=== PATIENT | female | born 2005 | race Caucasian/White ===

== ENCOUNTER 2023-10-02 20:07 | Emergency (ER) | payer OTHER, MEDICAID, SELFPAY ==
[2023-10-02 20:25] VITALS: BP 134/79; PULSE 82; RESP 18; TEMP 37.1; O2SAT 100; BMI 26.5
[2023-10-02] MEDS: IBUPROFEN 400 MG TABLET PO (20:44)
[2023-10-02 20:50] LABS: Add Manual Diff / Slide Review NO; Basophils Absolute Auto 100 /uL (0-100); Basophils Percent Auto 0.7 % (0-2); Eosinophils Absolute Auto 100 /uL (0-450); Eosinophils Percent Auto 0.8 % (2-4); Hematocrit 44.1 % (36-46); Hemoglobin 14.9 g/dL (12.0-16.0); Lymphocytes Absolute Auto 3100 /uL (1100-4500); Lymphocytes Percent Auto 37.4 % (25-40); Mean Corpuscular HGB Conc 33.7 % (30-36); Mean Corpuscular Hemoglobin 29.9 PG (26-34); Mean Corpuscular Volume 88.8 fL (80-100); Monocytes Absolute Auto 700 /uL (0-900); Neutrophils Absolute Auto 4400 /uL (1500-7000); Neutrophils Percent Auto 53.1 % (50-75); Platelet Count 250 X10^3/uL (150-400); Red Blood Cell Count 4.96 X10^6/uL (4.0-5.2); Red Cell Distribution Width 12.4 % (11.6-14.8); White Blood Cell Count 8.4 X10^3/uL (4.5-11.0)
[2023-10-02 21:00] LABS: Alanine Aminotransferase 17 IU/L (<35); Albumin 4.9 g/dL (3.5-5.0); Albumin Globulin Ratio 1.4 (1.0-2.8); Alkaline Phosphatase 76 U/L (38-126); Aspartate Aminotransferase 30 IU/L (14-36); BUN Creatinine Ratio 13.6 (6-22); Bilirubin Total 0.6 mg/dL (0.2-1.3); Blood Urea Nitrogen 9 mg/dL (7-17); Calcium 9.8 mg/dL (8.4-10.2); Carbon Dioxide 24 mmol/L (22-32); Chloride 107 mmol/L (98-107); Estimated Glomerular Filt Rate > 60 mL/min (>60); Globulin 3.6 g/dL (1.7-4.1); Glucose 84 mg/dL (70-100); HEMOLYSIS 48 (0-50); Lipase 67 U/L (23-300); Sodium 140 mmol/L (137-145); Total Protein 8.5 g/dL (6.3-8.2)
[2023-10-03] VITALS (7 sets, daily range): BP systolic 98–121; BP diastolic 57–69; PULSE 53–71; RESP 14; TEMP 36.2; O2SAT 98–100
[2023-10-03] MEDS: ONDANSETRON 4 MG/2 ML INJ IV (00:26)
[2023-10-03 01:04] LABS: Pregnancy Test Serum,Qual Negative (Negative)
--- NOTE | 2023-10-03 01:06 | DI.US.S_ITS ---
PROCEDURE: US PELVIC COMPLETE INDICATIONS: L PELVIC PAIN, HX LARGE CYSTS REQURIING SURGERY TECHNIQUE: Real-time scanning was performed of the pelvic organs, with image documentation. Additional endovaginal scanning was necessary due to incomplete visualization of the adnexal and endometrial structures by transabdominal scanning. COMPARISON: None. FINDINGS: Uterus: Uterus is retroverted and normal in size at 6.8 x 4.1 x 6.1 cm. The myometrium is homogeneous. The endometrium measures 6.6 mm combined thickness. Ovaries: The right ovary measures 4.3 x 2.8 x 2.6 cm, with a calculated ovarian volume of 16.2 cc. The left ovary measures 2.3 x 4.5 x 2.9 cm, with a calculated ovarian volume of 16.0 cc. The ovaries have a normal sonographic appearance. Less than 12 follicles can be seen in each ovary. No adnexal masses are seen. Other: No pathologic free abdominal or pelvic fluid. IMPRESSION: Normal appearance of the uterus and ovaries. No ovarian cysts. Findings are concordant with preliminary interpretation provided by [facility]. We strive to produce accurate, complete, and clear reports of imaging services. To assist us in improving patient care, this report was composed using standard report templates and voice recognition software. Therefore, it may contain abnormal punctuation, insertions and/or omissions. Occasional wrong-word or sound-alike substitutions may occur. Though we review the report and make efforts to correct it, we do recommend that the report be read carefully in proper context to recognize any text inaccuracies. Dictated by: Rodegr Espino M.D. on 10/03/2023 at 8:35 Approved by: Rodger Espino M.D. on 10/03/2023 at 8:37
--- NOTE | 2023-10-03 01:15 | ED.ABDPAIN ---
HPI - Abdominal Pain General Chief Complaint: Abdominal Pain Stated Complaint: intense abd pain t-1 Time Seen by Provider: 10/03/23 00:19 Source: patient Mode of arrival: Ambulatory History of Present Illness HPI narrative: 17-year-old female presents by private vehicle for left lower quadrant abdominal/pelvic pain. Pain began yesterday and was constant, intermittent today. Not improved with [id number] ibuprofen. Patient reports history of ovarian cysts on the left-hand side requiring surgery due to their size. Patient was concerned that she may have another ovarian cyst. Denies vaginal discharge, dysuria, hematuria. Related Data Allergies Allergy/AdvReac Type Severity Reaction Status Date / Time hydromorphone [From Dilaudid] Allergy Verified 10/02/23 20:24 Patient History Social History Smoking Status: Never smoker Smoking Status: Never smoker alcohol intake frequency: 0-2 drinks per day Substance Use Type: does not use Exam Initial Vital Signs Initial Vital Signs: Vital Signs Temperature 98.7 F 10/02/23 20:25 Pulse Rate 82 10/02/23 20:25 Respiratory Rate 18 10/02/23 20:25 Blood Pressure 134/79 10/02/23 20:25 Pulse Oximetry 100 10/02/23 20:25 Oxygen Delivery Method Room Air 10/02/23 20:25 Const: Awake, alert, no acute distress, nontoxic appearing Cardiac: regular rate, regular rhythm RESP: unlabored, clear bilaterally, no wheezing GI: Soft, minimal left lower quadrant tenderness to deep palpation without rebound or guarding Skin: Warm, Dry, intact, no rashes Neuro: AO x3, CN II-XII grossly intact, moves all extremities Course Orders Ordered: ED Orders 10/02/23 20:40 Complete Blood Count AUTO DIFF Stat Comprehensive Metabolic Panel Stat Lipase Stat 10/03/23 00:00 Test Serum,Qual Stat 10/03/23 01:06 US pelvic complete Stat Discontinued Medications Ibuprofen (Ibuprofen 400 Mg Tablet) 400 mg PO NOW ONE Stop: 10/02/23 20:42 Last Admin: 10/02/23 20:44 Dose: 400 mg Documented By: BALBINA Ondansetron HCl (Ondansetron 4 Mg/2 Ml Inj) 4 mg IV NOW PRN PRN Reason: Nausea And Vomiting Last Admin: 10/03/23 00:26 Dose: 4 mg Documented By: GILBERTO Ondansetron HCl (Ondansetron 4 Mg Odt) 4 mg PO NOW PRN PRN Reason: Nausea And Vomiting Vital Signs Vital signs: Vital Signs - 8 hr 10/02/23 20:25 10/03/23 00:12 10/03/23 00:15 Temperature 98.7 F Pulse Rate 82 71 Respiratory Rate 18 Blood Pressure 134/79 121/69 Pulse Oximetry 100 100 Oxygen Delivery Method Room Air 10/03/23 00:15 10/03/23 00:30 10/03/23 00:30 Temperature Pulse Rate 61 57 L Respiratory Rate Blood Pressure 119/69 Pulse Oximetry 100 100 Oxygen Delivery Method Room Air 10/03/23 01:00 10/03/23 01:00 10/03/23 01:27 Temperature Pulse Rate 55 L 53 L Respiratory Rate Blood Pressure 98/57 L Pulse Oximetry 99 98 Oxygen Delivery Method Room Air 10/03/23 01:28 10/03/23 02:36 Temperature 97.2 F L Pulse Rate 56 L Respiratory Rate 14 Blood Pressure 103/63 104/58 L Pulse Oximetry 100 Oxygen Delivery Method Room Air MDM - Abdominal Pain Lab Data 10/02/23 20:40 10/02/23 20:40 Labs: Lab Results 10/02/23 10/03/23 Range/Units 20:40 00:00 WBC 8.4 (4.5-11.0) X10^3/uL RBC 4.96 (4.0-5.2) X10^6/uL Hgb 14.9 (12.0-16.0) g/dL Hct 44.1 (36-46) % MCV 88.8 (80-100) fL MCH 29.9 (26-34) PG MCHC 33.7 (30-36) % RDW 12.4 (11.6-14.8) % Plt Count 250 (150-400) X10^3/uL Neut % (Auto) 53.1 (50-75) % Lymph % (Auto) 37.4 (25-40) % [place] % (Auto) 8.0 (3-14) % Eos % (Auto) 0.8 L (2-4) % Baso % (Auto) 0.7 (0-2) % Neut # (Auto) 4400 (8219-2702) /uL Lymph # (Auto) 3100 (4258-2700) /uL [place] # (Auto) 700 (0-900) /uL Eos # (Auto) 100 (0-450) /uL Baso # (Auto) 100 (0-100) /uL Sodium 140 (137-145) mmol/L Potassium 4.0 (3.4-5.1) mmol/L Chloride 107 (98-107) mmol/L Carbon Dioxide 24 (22-32) mmol/L BUN 9 (7-17) mg/dL Creatinine 0.66 (0.52-1.04) mg/dL Estimated GFR > 60 (>60) mL/min BUN/Creatinine Ratio 13.6 (6-22) Glucose 84 (70-100) mg/dL Calcium 9.8 (8.4-10.2) mg/dL Total Bilirubin 0.6 (0.2-1.3) mg/dL AST 30 (14-36) IU/L ALT 17 (<35) IU/L Alkaline Phosphatase 76 (38-126) U/L Total Protein 8.5 H (6.3-8.2) g/dL Albumin 4.9 (3.5-5.0) g/dL Globulin 3.6 (1.7-4.1) g/dL Albumin/Globulin Ratio 1.4 (1.0-2.8) Lipase 67 (23-300) U/L Serum , Qual Negative (Negative) Point of care testing: Urine Dip Bedside Urine Glucose Negative Bedside Urine Bilirubin - Negative Bedside Urine Ketone - Negative Urine Specific [place] 1.020 Bedside Urine Occult Blood +++ Bedside Urine pH 6.0 Bedside Urine Protein - Negative Bedside Urine Urobilinogen - Negative Bedside Urine Nitrite - Negative Bedside Urine Leukocytes - Negative Esterase Imaging Data US - [employer] DES[employer]ER: Radiologist's Impression: Preliminary review -normal ovaries, normal flow, unremarkable ultrasound MDM Narrative Medical decision making narrative: Left lower quadrant abdominal/pelvic pain, patient was mostly concerned that she may have another large cyst causing her symptoms. Abdomen soft, no significant tenderness to light or deep palpation. Laboratory work unremarkable, no evidence of infection on urinalysis. Ultrasound imaging shows normal ovaries bilaterally without any concerning enlarged cysts or masses. Patient counseled on lab and imaging findings, counseled to follow up with OBGYN if she continues to experience lower pelvic pains. Discharge Plan Departure Patient Disposition: Home Clinical Impression: Pelvic pain Instructions: DI for Pelvic Pain Activity Restrictions/Additional Instructions: Your ultrasound today was normal. I do not know the cause of your pelvic pain. Follow up with OBGYN if you keep having pain. Stand Alone Forms: Patient Portal/API, Work Release Note
== END 2023-10-03 02:37 | disposition home or self-care (01) ==
PROVIDERS: Emergency Provider Emergency Medicine
DX: R10.2 Pelvic and perineal pain (principal)
CPT/HCPCS: 36415; 76830; 76856; 80053; 81002; 81003; 81025; 83690; 84703; 85018; 85025; 93975; 96374; 99284; J2405